=== PATIENT | female | born 1975 | race Caucasian/White ===

== ENCOUNTER 2017-11-26 16:30 | Inpatient (IN) | payer SELFPAY ==
[2017-11-26] MEDS: ZIPRASIDONE IM 20 MG VIAL. IM (18:26)
[2017-11-26 18:46] LABS: ADD MAN DIFF? NO
[2017-11-26 18:51] LABS: BASO % 0 % (0-3); EOS % 0 % (0-3); HEMATOCRIT 39.2 % (36.0-47.0); LYMPH # 1.3 x10^3/uL (1.0-4.8); LYMPH % 12 % (24-48); MEAN CORPUSCULAR HEMOGLOBIN 26 pg (25-35); MEAN CORPUSCULAR HGB CONC 33 g/dL (31-37); MEAN CORPUSCULAR VOLUME 78 fL (79-100); MONO % 9 % (0-9); NEUT # 8.7 x10^3uL (1.8-7.7); NEUT % 79 % (31-73); PLATELET COUNT 244 x10^3/uL (140-400); RED BLOOD COUNT 5.01 x10^6/uL (3.50-5.40); RED CELL DISTRIBUTION WIDTH 15.7 % (11.5-14.5)
[2017-11-26 19:03] LABS: AMMONIA 12 mcmol/L (11-34)
[2017-11-26 19:04] LABS: ANION GAP 21 (6-14); BLOOD UREA NITROGEN 15 mg/dL (7-20); BUN/CREATININE RATIO 19 (6-20); CALCIUM 8.7 mg/dL (8.5-10.1); CARBON DIOXIDE 21 mmol/L (21-32); CHLORIDE 101 mmol/L (98-107); CREATININE 0.8 mg/dL (0.6-1.0); GFR 83.7; GLUCOSE 90 mg/dL (70-99); POTASSIUM 3.5 mmol/L (3.5-5.1); SODIUM 143 mmol/L (136-145)
[2017-11-26 19:10] LABS: ALBUMIN/GLOBULIN RATIO 0.7 (1.0-1.7); ALK PHOS 154 U/L (46-116); ALT (SGPT) 27 U/L (14-59); AST (SGOT) 21 U/L (15-37); MAGNESIUM 1.8 mg/dL (1.8-2.4); TOTAL BILIRUBIN 0.6 mg/dL (0.2-1.0); TOTAL PROTEIN 7.2 g/dL (6.4-8.2)
[2017-11-26 19:13] LABS: TROPONINI < 0.017 ng/mL (0.000-0.055)
[2017-11-26 19:18] LABS: CKMB INDEX 0.8 % (0-4); CKMB MASS 2.5 ng/mL (0.0-3.6); CREATINE KINASE 317 U/L (26-192)
[2017-11-26 19:30] LABS: BILIRUBIN,URINE NEGATIVE (NEG); COLOR,URINE YELLOW; GLUCOSE,URINE NEGATIVE (NEG); NITRITE,URINE NEGATIVE (NEG); PROTEIN,URINE 30 mg/dL (NEG-TRACE)
[2017-11-26 19:38] LABS: CLARITY,URINE CLEAR
[2017-11-26 19:42] LABS: BACTERIA,URINE FEW /HPF (0-FEW); RBC,URINE 0 /HPF (0-2); SQUAMOUS EPITHELIAL CELL,UR MOD /LPF; WBC,URINE OCC /HPF (0-4)
[2017-11-26 19:43] LABS: BARBITURATES NEG (NEG); BENZODIAZEPINES NEG (NEG); CANNABINOIDS POS (NEG); COCAINE NEG (NEG); HYALINE CASTS, URINE OCCASIONAL /HPF; METHADONE NEG (NEG); OPIATES NEG (NEG); PHENCYCLIDINE NEG (NEG)
[2017-11-26 19:49] LABS: AMPHETAMINE/METHAMPHETAMINE NEG (NEG); ETHANOL, URINE NEG (NEG)
[2017-11-26 20:08] LABS: INR 1.2 (0.8-1.1); PARTIAL THROMBOPLASTIN TIME 23 SEC (24-38); PROTHROMBIN TIME PATIENT 14.6 SEC (11.7-14.0)
[2017-11-26 20:44] LABS: NEG OBC UR NEG; POS OBC UR POS; U PREG PATIENT NEGATIVE (NEG)
[2017-11-26] MEDS ORDERED: MIDAZOLAM HCL/PF 2 MG/2 ML VIAL. (21:07)
[2017-11-26] MEDS ORDERED: MIDAZOLAM HCL/PF 5 MG/5 ML VIAL. NS (21:15)
[2017-11-26] MEDS: MIDAZOLAM HCL/PF 2 MG/2 ML VIAL. IV (21:16)
[2017-11-27] MEDS: IV NORMAL SALINE 1000ML BAG 1,000 ML IV ×3 (00:20→15:40)
[2017-11-27] MEDS: ACETAMINOPHEN 325 MG TABLET. PO (08:12)
[2017-11-27] MEDS: LIDOCAINE (700MG/PATCH) PATCH. TD (09:40)
[2017-11-27] MEDS: CITALOPRAM 10 MG TABLET. PO (11:11)
[2017-11-27 12:18] LABS: CREATINE KINASE 192 U/L (26-192)
[2017-11-27 12:31] LABS: THYROID STIM HORMONE (TSH) 0.007 uIU/mL (0.358-3.74)
[2017-11-27 14:17] LABS: VITAMIN-B12 > 2000 pg/mL (247-911)
[2017-11-27] MEDS: METOPROLOL TART IMMED RELEASE 25 MG TABLET. PO ×2 (15:42→20:45)
[2017-11-27] MEDS: methIMAzole 10 MG TABLET PO ×2 (15:42→20:44)
[2017-11-27] MEDS: LORazepam 1 MG TABLET PO (16:05)
[2017-11-27 17:38] LABS: FREE T4 2.37 ng/dL (0.76-1.46)
[2017-11-27] MEDS: LORazepam INTENSOL 2 MG/ML ORAL.CONC SL (17:38)
[2017-11-27] MEDS: PATCH REMOVAL. MC (20:10)
[2017-11-27] MEDS: AMITRIPTYLINE HCL 25 MG TABLET. PO (20:44)
[2017-11-27] MEDS: HALOPERIDOL LACTATE 5 MG/ML VIAL. IVP ×2 (21:09→23:10)
[2017-11-28] MEDS: HALOPERIDOL LACTATE 5 MG/ML VIAL. IVP (04:20)
[2017-11-28] MEDS: methIMAzole 10 MG TABLET PO ×3 (08:16→20:20)
[2017-11-28] MEDS: LIDOCAINE (700MG/PATCH) PATCH. TD (08:16)
[2017-11-28] MEDS: LORazepam 0.5 MG TABLET PO ×2 (08:17→20:24)
[2017-11-28] MEDS: CITALOPRAM 10 MG TABLET. PO (08:17)
[2017-11-28] MEDS: METOPROLOL TART IMMED RELEASE 25 MG TABLET. PO ×2 (08:20→20:20)
[2017-11-28 08:45] LABS: ADD MAN DIFF? NO
[2017-11-28 08:53] LABS: BASO % 0 % (0-3); EOS % 0 % (0-3); HEMATOCRIT 38.6 % (36.0-47.0); HEMOGLOBIN 12.8 g/dL (12.0-15.5); LYMPH # 0.9 x10^3/uL (1.0-4.8); LYMPH % 14 % (24-48); MEAN CORPUSCULAR HEMOGLOBIN 26 pg (25-35); MEAN CORPUSCULAR HGB CONC 33 g/dL (31-37); MEAN CORPUSCULAR VOLUME 79 fL (79-100); MONO # 0.5 x10^3/uL (0.0-1.1); MONO % 7 % (0-9); NEUT # 5.2 x10^3uL (1.8-7.7); NEUT % 79 % (31-73); PLATELET COUNT 208 x10^3/uL (140-400); RED BLOOD COUNT 4.89 x10^6/uL (3.50-5.40); RED CELL DISTRIBUTION WIDTH 15.7 % (11.5-14.5); WHITE BLOOD COUNT 6.6 x10^3/uL (4.0-11.0)
[2017-11-28 09:09] LABS: ANION GAP 10 (6-14); BLOOD UREA NITROGEN 7 mg/dL (7-20); CALCIUM 8.7 mg/dL (8.5-10.1); CARBON DIOXIDE 24 mmol/L (21-32); CHLORIDE 108 mmol/L (98-107); CREATININE 0.6 mg/dL (0.6-1.0); GFR 109.6; GLUCOSE 105 mg/dL (70-99); POTASSIUM 3.9 mmol/L (3.5-5.1); SODIUM 142 mmol/L (136-145)
[2017-11-28] MEDS: AMITRIPTYLINE HCL 25 MG TABLET. PO (20:20)
[2017-11-28] MEDS: HALOPERIDOL 5 MG TABLET. PO (20:24)
[2017-11-28] MEDS: PATCH REMOVAL. MC (21:00)
[2017-11-29] MEDS: HALOPERIDOL 5 MG TABLET. PO (03:20)
[2017-11-29] MEDS: LORazepam 1 MG TABLET PO (03:20)
[2017-11-29] MEDS: methIMAzole 10 MG TABLET PO (08:06)
[2017-11-29] MEDS: METOPROLOL TART IMMED RELEASE 25 MG TABLET. PO (08:06)
[2017-11-29] MEDS: CITALOPRAM 10 MG TABLET. PO (08:06)
[2017-11-29] MEDS: LIDOCAINE (700MG/PATCH) PATCH. TD (08:07)
[2017-11-29] MEDS: LORazepam 0.5 MG TABLET PO (08:23)
[2017-11-29 10:08] LABS: ADD MAN DIFF? NO
[2017-11-29 10:17] LABS: BASO % 1 % (0-3); EOS % 1 % (0-3); HEMOGLOBIN 12.7 g/dL (12.0-15.5); LYMPH # 1.3 x10^3/uL (1.0-4.8); LYMPH % 29 % (24-48); MEAN CORPUSCULAR HEMOGLOBIN 27 pg (25-35); MEAN CORPUSCULAR HGB CONC 34 g/dL (31-37); MEAN CORPUSCULAR VOLUME 78 fL (79-100); MONO # 0.5 x10^3/uL (0.0-1.1); MONO % 10 % (0-9); NEUT # 2.7 x10^3uL (1.8-7.7); NEUT % 59 % (31-73); PLATELET COUNT 205 x10^3/uL (140-400); RED BLOOD COUNT 4.73 x10^6/uL (3.50-5.40); RED CELL DISTRIBUTION WIDTH 15.6 % (11.5-14.5); WHITE BLOOD COUNT 4.5 x10^3/uL (4.0-11.0)
[2017-11-29 10:21] LABS: ANION GAP 8 (6-14); BLOOD UREA NITROGEN 8 mg/dL (7-20); CALCIUM 8.6 mg/dL (8.5-10.1); CARBON DIOXIDE 27 mmol/L (21-32); CHLORIDE 106 mmol/L (98-107); CREATININE 0.6 mg/dL (0.6-1.0); GFR 109.6; GLUCOSE 90 mg/dL (70-99); SODIUM 141 mmol/L (136-145)
[2017-11-29 10:32] LABS: FREE T4 2.36 ng/dL (0.76-1.46)
== END 2017-11-29 12:30 | disposition home or self-care (01) | DRG 92 ==
LOC: ER 16:30 → 5 NORTH 22:30
DX: G92 Toxic encephalopathy (principal); Z68.41 Body mass index [BMI] 40.0-44.9, adult; E03.9 Hypothyroidism, unspecified; F12.10 Cannabis abuse, uncomplicated; G47.00 Insomnia, unspecified; N18.9 Chronic kidney disease, unspecified; E66.01 Morbid (severe) obesity due to excess calories; G89.29 Other chronic pain; M54.5 Low back pain; F41.9 Anxiety disorder, unspecified; Z88.0 Allergy status to penicillin; T40.7X5A Adverse effect of cannabis (derivatives), initial encounter
CPT/HCPCS: 36415; 70450; 80048; 80053; 80307; 81001; 81025; 82140; 82550; 82553; 82607; 83735; 84439; 84443; 84481; 84484; 85025; 85610; 85730; 93005; 95816; 96372; 96374; 99285; 99285-25; J1630; J2060; J2250; J3486; J7030